=== PATIENT | female | born 1980 | race Caucasian/White ===

== ENCOUNTER → 2025-04-13 15:42 | Outpatient (REF) | payer BC, SELFPAY | LOC: RCS 15:42 | PROVIDERS: ATTENDING PHYSICIAN Internal Medicine Cardiovascular Disease; FAMILY PHYSICIAN Nurse Practitioner Family | DX: R07.2 Precordial pain (principal); I25.10 Atherosclerotic heart disease of native coronary artery without angina pectoris; Z82.49 Family history of ischemic heart disease and other diseases of the circulatory system | CPT/HCPCS: 93306 ==

== ENCOUNTER 2025-04-20 06:27 | Day surgery (SDC) | payer BC, SELFPAY ==
[2025-04-20] VITALS (16 sets, daily range): BP systolic 98–125; BP diastolic 58–74; BMI 33.4
[2025-04-20] MEDS: NSS 282 ML IV (07:23)
--- NOTE | 2025-04-20 08:21 | ITS.CL.CATH ---
[facility] - Catheterization
Cardiac Catheterization
Procedure Report:
CARDIAC CATHETERIZATION REPORT
Date of Procedure: 04/20/2025
Referring: Grant Hernandez D.O.
INDICATION: Chest pain, abnormal coronary CTA.
PROCEDURE:
1. Left heart catheterization.
2. Coronary angiography.
A total of 18 minutes of procedural/moderate sedation was utilized. An independent medical anthropologist was present to assist with and help manage the patient's level of consciousness and physiologic status.
ACCESS:
1. 6 [place] right rate artery using a modified Seldinger technique.
CATHETERS:
1. 5 [place] JR4.
2. 5 [place] JL 3.5.
HEMODYNAMIC DATA
Weight (kg): 93.9
AO (s/d/x, mmHg): 109/73/90
LV (s/x mmHg): 113/10
LEFT VENTRICULOGRAPHY: Not performed.
CORONARY ANGIOGRAPHY
Dominance: Left.
Left Main: Normal size, bifurcating vessel. There is no coronary artery disease.
LAD: Normal size vessel giving rise to 2 diagonals. There are minor luminal irregularities and mild external calcification.
Ramus: Congenitally absent.
Circumflex: Large size, dominant vessel giving rise to 2 obtuse marginals before terminating as a left posterolateral branch and a medium sized LPDA. There is a 30-40% lesion in the proximal margin of the LPDA. There are luminal irregularities
in the other branch vessels.
RCA: Small size, nondominant vessel. There is no significant coronary artery disease.
INTERVENTION(S)
None.
Closure Device: Vascular band.
Radiation (mGy): 332.11
DAP (cm2.Gy): 18.8021
Fluoroscopy time (minutes): 1.7
CONCLUSIONS
1. Left dominant circulation with luminal irregularities in the entire left coronary tree and a 30-40% lesion in the proximal margin of the LPDA.
2. Normal filling pressures (LVEDP = 10 mmHg at 93.9 kg).
RECOMMENDATIONS:
1. Expectant management after cardiac catheterization via right radial approach.
2. Limited weight bearing on the right wrist for one week.
3. Continue aggressive primary prevention with high-dose, high potency statin.
4. Continue aggressive risk factor modification including hypertension control and weight loss in addition to diabetic control.
5. Low threshold for uptitration of amlodipine given differential diagnosis of esophageal spasm versus microvascular angina.
6. Stable for outpatient follow-up.
Copy to: Grant Hernandez D.O., DILAN Randall
Patrick Hawkins DO, FACC, FACP
[2025-04-20] MEDS: NSS 1000 IV (09:15)
== END 2025-04-20 11:54 | disposition home or self-care (01) ==
LOC: CATH 06:27
PROVIDERS: ATTENDING PHYSICIAN Internal Medicine Cardiovascular Disease; FAMILY PHYSICIAN Nurse Practitioner Family; OTHER PHYSICIAN Internal Medicine Cardiovascular Disease
DX: I25.10 Atherosclerotic heart disease of native coronary artery without angina pectoris (principal); R07.9 Chest pain, unspecified; I10 Essential (primary) hypertension; R73.03 Prediabetes; Z79.82 Long term (current) use of aspirin; Z79.899 Other long term (current) drug therapy
CPT/HCPCS: 99152; 93458; C1894; Q9967